=== PATIENT | male | born 1960 ===

== ENCOUNTER 2017-05-04 15:33 | Emergency (ER) | payer OTHER ==
[~2017-05-04] VITALS: Ht 188 cm; Wt 123.4 kg
[~2017-05-04 15:33] MED LIST: ACET325T14 PO; CEPH-368 PO; CIPR500T87 PO; CYCL50TA PO; ENOX150S5 SQ; FLUT16SP NAS; HYDR-3241 PO; LOSA25TA2 PO; NYST1000 PO; OMEP-110 PO; OXYC5TAB3 PO; PANT40TA3 PO; PRED20TA PO; WARF10TA6 PO-COUM
[2017-05-04] MEDS ORDERED: CETI10TA18 PO (15:54)
[2017-05-04] MEDS ORDERED: PRED10TA PO (15:54)
[2017-05-04] MEDS ORDERED: RIVAROXABAN 15 MG TABLET PO ONE (17:30)
[2017-05-04 17:52] LABS: ALBUMIN 3.7 g/dL (3.4-5.0); ANION GAP 6 mmol/L (5-15); CALCIUM 8.6 mg/dL (8.5-10.1); CHLORIDE 108 mmol/L (98-107); CREATININE 1.56 mg/dL (0.7-1.3)
[2017-05-04 18:42] VITALS: BP 129/81
== END 2017-05-04 18:44 | disposition home or self-care (01) ==
LOC: ED 16:30
DX: M79.661 Pain in right lower leg (principal); I82.411 Acute embolism and thrombosis of right femoral vein; K21.9 Gastro-esophageal reflux disease without esophagitis; I10 Essential (primary) hypertension
CPT/HCPCS: 36415; 80048; 82040; 99285